=== PATIENT | male | born 1985 | race Caucasian/White ===

== ENCOUNTER 2017-09-01 09:12 | Emergency (ER) | payer BC ==
[~2017-09-01] VITALS: Ht 177.8 cm; Wt 77.3 kg
[~2017-09-01 09:12] MED LIST: BACTRIM DS 8001 TAB PO; BENZTROPINE MESY1 MG PO; CARBAMAZEPINE200 MG PO; CELEXA 20MG20 MG/TAB PO; CEPHALEXIN500 M1 PO; CHLORPROMAZINE100 M1 PO; CITALOPRAM20 MG PO; COGENTIN .0.5 MG/TAB PO; LORTAB 5/500 501 TAB PO; NEXIUM 20MG20 MG PO; NO HOME MEDICATIONS; NORCO 325 MG-51 TAB PO; PERCOCET 325 MG1 TA2 PO; PRILOSEC 20MG20 MG PO; SCHIZOPHRENIA MED; SEIZURE MED; SEROQUEL XR300 MG PO; TEGRETOL 1100 MG/TAB PO; THORAZINE100 MG/TAB PO; UNABLE; WELLBUTRIN 100100 MG PO; ZOLPIDEM10 MG PO
[2017-09-01 09:20] VITALS: BP 136/81; PULSE 110; TEMP 97.8
[2017-09-01] MEDS ORDERED: PREDNISONE10 MG PO (09:27)
[2017-09-01] MEDS ORDERED: FLEXERIL 1010 MG/TAB PO (09:27)
[2017-09-01] MEDS ORDERED: NORCO 325 MG-51 TAB PO (11:18)
== END 2017-09-01 12:10 | disposition home or self-care (01) ==
LOC: COL.ER 09:12
DX: M54.5 Low back pain (principal); F17.210 Nicotine dependence, cigarettes, uncomplicated; Z79.52 Long term (current) use of systemic steroids; X50.0XXA Overexertion from strenuous movement or load, initial encounter
CPT/HCPCS: J1885

== ENCOUNTER → 2017-09-14 | Outpatient (CLI) | payer OTHER, BC ==
[~2017-09-14] MED LIST changes: +FLEXERIL 1010 MG/TAB PO; +PREDNISONE10 MG PO
== END ==
LOC: MHCPAIN 08:07
DX: G89.29 Other chronic pain (principal); M47.817 Spondylosis without myelopathy or radiculopathy, lumbosacral region; M47.24 Other spondylosis with radiculopathy, thoracic region; F17.200 Nicotine dependence, unspecified, uncomplicated
CPT/HCPCS: G0463

== ENCOUNTER → 2017-10-07 | Outpatient (CLI) | payer OTHER, BC | LOC: COL.RAD 14:00 | DX: M46.04 Spinal enthesopathy, thoracic region (principal); M47.814 Spondylosis without myelopathy or radiculopathy, thoracic region ==

== ENCOUNTER → 2017-10-11 | Outpatient (CLI) | payer OTHER, BC | LOC: MHCPAIN 08:03 | DX: G89.29 Other chronic pain (principal); M47.817 Spondylosis without myelopathy or radiculopathy, lumbosacral region; M47.22 Other spondylosis with radiculopathy, cervical region; F17.200 Nicotine dependence, unspecified, uncomplicated | CPT/HCPCS: G0463 ==

== ENCOUNTER → 2017-10-28 | Outpatient (CLI) | payer OTHER, BC | LOC: MHCPAIN 08:14 | DX: M47.12 Other spondylosis with myelopathy, cervical region (principal); M25.78 Osteophyte, vertebrae | CPT/HCPCS: J1100; J2250; J3010; Q9967 ==

== ENCOUNTER → 2017-11-16 | Outpatient (CLI) | payer OTHER, BC | LOC: MHCPAIN 08:59 | DX: G89.29 Other chronic pain (principal); M47.817 Spondylosis without myelopathy or radiculopathy, lumbosacral region; M47.814 Spondylosis without myelopathy or radiculopathy, thoracic region; M54.14 Radiculopathy, thoracic region | CPT/HCPCS: G0463 ==

== ENCOUNTER → 2017-11-29 | Outpatient (CLI) | payer BC ==
[2017-11-29 16:12] LABS: BASO # 0.1 (0.0-0.2); BASO % 0.5 % (0.0-2.0); EOS # 0.2 (0.0-0.7); EOS % 1.9 % (0-4.0); GRAN # 8.3 (1.4-6.5); GRAN % 67.9 % (42.2-75.2); HEMATOCRIT 47.8 % (42.0-52.0); HEMOGLOBIN 16.5 g/dl (13.5-18.0); LYMPH # 2.7 (1.2-3.4); LYMPH % 21.8 % (20.0-51.0); MEAN CELL VOLUME 91 fl (80.0-100.0); MEAN CORPUSCULAR HEMOGLOBIN 31 pg (27.0-31.0); MEAN CORPUSCULAR HGB CONC 35 g/dl (33.0-37.0); MEAN PLATELET VOLUME 9.3 fl (7.4-10.4); MONO # 0.9 (0.1-0.6); MONO % 7.6 % (1.7-9.3); PLATELET COUNT 223 K/mm3 (130-400); RED BLOOD COUNT 5.28 M/mm3 (4.20-5.60); REDCELL DISTRIBUTION WIDTH-CV 12.9 % (11.5-14.5)
[2017-11-29 16:22] LABS: ALBUMIN 4.3 gm/dL (3.5-5.0); BILIRUBIN,TOTAL 0.7 mg/dL (0.0-1.0); CALCIUM 9.4 mg/dL (8.4-10.2); CHOLESTEROL RISK RATIO 4.7; CREATININE, serum 0.81 mg/dL (0.66-1.25); POTASSIUM 4.4 mmol/L (3.4-5.0); TOTAL PROTEIN 7.3 gm/dL (6.4-8.2)
== END ==
LOC: COL.LAB 15:26
PROVIDERS: Family Medicine
DX: Z13.0 Encounter for screening for diseases of the blood and blood-forming organs and certain disorders involving the immune mechanism (principal); Z13.220 Encounter for screening for lipoid disorders; R10.31 Right lower quadrant pain

== ENCOUNTER → 2017-12-13 | Outpatient (CLI) | payer BC | LOC: COL.RAD 12-07 12:05 | DX: R10.31 Right lower quadrant pain (principal) | CPT/HCPCS: Q9967 ==

== ENCOUNTER 2017-12-20 09:15 | Outpatient (RCR) | payer OTHER, BC | END 2017-12-21 | disposition home or self-care (01) | LOC: MKS.ESL.PT | DX: M51.36 Other intervertebral disc degeneration, lumbar region (principal); M51.34 Other intervertebral disc degeneration, thoracic region | CPT/HCPCS: G0283-GP ==

== ENCOUNTER → 2018-01-06 | Outpatient (CLI) | payer BC | LOC: MHCPAIN 14:41 | DX: M47.817 Spondylosis without myelopathy or radiculopathy, lumbosacral region (principal); M54.14 Radiculopathy, thoracic region | CPT/HCPCS: J1100; J2250; J3010; Q9967 ==

== ENCOUNTER 2018-02-11 11:00 | Outpatient (RCR) | payer BC | END 2018-03-22 | disposition home or self-care (01) | LOC: WSPT | DX: M51.35 Other intervertebral disc degeneration, thoracolumbar region (principal) ==

== ENCOUNTER → 2018-03-09 | Outpatient (CLI) | payer BC | LOC: MHCPAIN 14:59 | DX: G89.29 Other chronic pain (principal); M47.817 Spondylosis without myelopathy or radiculopathy, lumbosacral region; M47.814 Spondylosis without myelopathy or radiculopathy, thoracic region; M54.14 Radiculopathy, thoracic region | CPT/HCPCS: G0463 ==

== ENCOUNTER → 2018-03-21 | Outpatient (CLI) | payer BC | LOC: MHCPAIN 13:45 | DX: M47.814 Spondylosis without myelopathy or radiculopathy, thoracic region (principal); M54.14 Radiculopathy, thoracic region | CPT/HCPCS: J1100; J2250; J3010; Q9967 ==

== ENCOUNTER → 2018-03-31 | Outpatient (CLI) | payer BC | LOC: MHCPAIN 14:40 | DX: M47.814 Spondylosis without myelopathy or radiculopathy, thoracic region (principal); M54.14 Radiculopathy, thoracic region | CPT/HCPCS: J1100; J2250; J3010; Q9967 ==

== ENCOUNTER → 2018-07-06 | Outpatient (CLI) | payer BC | LOC: MHCPAIN 07:43 | DX: G89.29 Other chronic pain (principal); M47.817 Spondylosis without myelopathy or radiculopathy, lumbosacral region; M47.814 Spondylosis without myelopathy or radiculopathy, thoracic region; M54.14 Radiculopathy, thoracic region | CPT/HCPCS: G0463 ==

== ENCOUNTER → 2018-08-18 | Outpatient (CLI) | payer SELFPAY ==
[2018-08-18 17:19] LABS: BASO # 0.1 (0.0-0.2); BASO % 0.4 % (0.0-2.0); EOS # 0.2 (0.0-0.7); EOS % 1.4 % (0-4.0); GRAN # 11.7 (1.4-6.5); GRAN % 71.3 % (42.2-75.2); HEMATOCRIT 51.2 % (42.0-52.0); HEMOGLOBIN 17.7 g/dl (13.5-18.0); LYMPH % 18.5 % (20.0-51.0); MEAN CELL VOLUME 89 fl (80.0-100.0); MEAN CORPUSCULAR HEMOGLOBIN 31 pg (27.0-31.0); MEAN CORPUSCULAR HGB CONC 35 g/dl (33.0-37.0); MEAN PLATELET VOLUME 9.9 fl (7.4-10.4); MONO # 1.3 (0.1-0.6); PLATELET COUNT 259 K/mm3 (130-400); RED BLOOD COUNT 5.75 M/mm3 (4.20-5.60); REDCELL DISTRIBUTION WIDTH-CV 12.8 % (11.5-14.5)
== END ==
LOC: ZCOL.LAB 16:29 → COL.LAB 16:29
PROVIDERS: Family Medicine
DX: K92.1 Melena (principal)

== ENCOUNTER → 2018-08-19 | Outpatient (CLI) | payer SELFPAY | LOC: COL.LAB 12:27 | DX: R10.9 Unspecified abdominal pain (principal); R19.7 Diarrhea, unspecified ==